=== PATIENT | male | born 1955 | race Caucasian/White ===

== ENCOUNTER 2025-02-14 09:42 | Outpatient (CLI) | payer MEDICARE, SELFPAY ==
--- NOTE | ~2025-02-14 | MR_ITS ---
EXAMINATION: MR knee LT wo con DATE: 02/14/2025 10:39 INDICATION: 2 months of generalized left knee pain with recent worsening post fall 3 weeks prior. TECHNIQUE: Magnetic resonance imaging (MRI) of the left knee was performed without intravenous contrast. Sequences included coronal PD-weighted FSE, coronal PD-weighted FS FSE, sagittal T2-weighted FSE, sagittal PD-weighted FS FSE and axial PD weighted fat saturated FSE. COMPARISON: None. FINDINGS: Medial compartment: Complex medial meniscal tear with longitudinal horizontal tear plane extending to the superior articular surface near the free edge of the posterior horn and extending into the anterior body where it contacts the midportion of the inferior articular surface. There is a secondary radial tear plane at the meniscal body. There is partial thickness chondral ulceration with chondral surface irregularity along the anterior and central weightbearing medial femoral condyle with a few tiny foci of underlying tiny foci of subarticular edema-like signal change. Additional deep chondral ulceration appears full/near full- thickness with small region of underlying subarticular edema-like signal change at the anteromedial along the anteromedial rim of the medial tibial plateau. Lateral compartment: Lateral meniscus is normal. Articular cartilage is normal. Patellofemoral compartment: Partial-thickness chondral ulceration and deep fissuring at the medial trochlea extending to the trochlear groove. Small focus of subarticular cystlike change at the superomedial aspect of the medial trochlea. The patellar and lateral trochlear cartilage is relatively preserved. Ligaments and tendons: Anterior and posterior cruciate ligaments are normal. The medial collateral ligament and fibular collateral ligament complex are normal. Patellar tendon is normal. Minimal tendinopathy without tear at the distal quadriceps tendon. The visualized medial and lateral hamstring tendons as well as the iliotibial band are normal. Fluid: Minimal left knee joint effusion at the suprapatellar pouch. No loose osteochondral bodies identified. Osseous/other: Bone alignment is normal. No fracture or pathologic marrow replacing process. There is mild osteoarthritis at the proximal tibiofibular articulation with small region of subarticular cystlike and edema-like signal changes at the tibial side of the joint space. IMPRESSION: 1. Complex medial meniscal tear. 2. 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 3. Mild osteoarthritis with additional high-grade chondromalacia at the proximal tibiofibular articulation. Reviewed, dictated and finalized at location A. [employer] IMPRESSION: 1. Complex medial meniscal tear. 2. Mild osteoarthritis with regions of moderate and high-grade chondromalacia i n the medial and patellofemoral compartments. 3. Mild osteoarthritis with additional high-grade chondromalacia at the proxima l tibiofibular articulation.
== END 2025-02-14 09:43 | disposition home or self-care (01) ==
LOC: MICIMG 09:43
PROVIDERS: PCP Orthopaedic Surgery; Visit Provider Orthopaedic Surgery
DX: S83.232A Complex tear of medial meniscus, current injury, left knee, initial encounter (principal); M94.262 Chondromalacia, left knee; M19.09 Primary osteoarthritis, other specified site
CPT/HCPCS: 73721